=== PATIENT | male | born 1985 | race Caucasian/White ===

== ENCOUNTER 2018-05-02 04:45 | Emergency (ER) | payer SELFPAY ==
[~2018-05-02] VITALS: Ht 165.1 cm; Wt 113.6 kg
[2018-05-02 04:50] VITALS: BP 140/88
[2018-05-02 06:04] LABS: HEMATOCRIT 37.9 % (38.0-50.0); HEMOGLOBIN 11.7 G/DL (12.5-16.6); MCH 22.6 PG (29.0-34.0); MCHC 30.9 G/DL (30.0-36.0); MCV 73.2 FL (86-99); PLATELET COUNT 211 K/uL (156-360); RBC DIS.WIDTH-CV 21.7 % (11.8-14.6); RBC DIS.WIDTH-SD 55.5 % (39-53); RED BLOOD COUNT 5.18 M/uL (4.00-5.50); WHITE BLOOD COUNT 6.3 K/uL (4.1-10.2)
[2018-05-02 06:10] LABS: CHLORIDE 103 mEq/L (99-109); POTASSIUM 3.8 mEq/L (3.7-5.4); SODIUM 140 mEq/L (136-147)
[2018-05-02 06:12] LABS: GLUCOSE 113 mg/dL (70-99)
[2018-05-02 06:15] LABS: SERUM ETHYL ALCOHOL < 10 mg/dL
[2018-05-02 06:16] LABS: GFR ESTIMATE (CALCULATED) > 59 mL/min/ (58.99-99999)
[2018-05-02 06:17] LABS: UREA NITROGEN (BUN) 9 mg/dL (9-23)
== END 2018-05-02 06:00 | disposition left against medical advice (07) ==
LOC: EME 04:45
DX: F16.90 Hallucinogen use, unspecified, uncomplicated (principal); S91.102A Unspecified open wound of left great toe without damage to nail, initial encounter; X83.8XXA Intentional self-harm by other specified means, initial encounter; Z79.01 Long term (current) use of anticoagulants; Z53.21 Procedure and treatment not carried out due to patient leaving prior to being seen by health care provider
CPT/HCPCS: 80048; 81003; 85027; G0480